=== PATIENT | female | born 1985 | race Caucasian/White ===

== ENCOUNTER 2017-05-04 13:14 | Day surgery (SDC) | payer OTHER ==
[2017-04-28 23:00] VITALS: BMI 26.6
[~2017-05-04 13:14] MED LIST: DEXAMETHASONE SOD PHOSPHATE 10 MG/ML 1 ML VIAL IV ONE; HEPARIN SODIUM,PORCINE 5,000 UNIT/ML 1 ML VIAL SQ ONE; LACTATED RINGERS 1,000 ML IV SCH; LIDOCAINE 1% 20 ML VIAL (10MG/ML) FOR IV START INTRADERMA PRN; ONDANSETRON 4 MG/2 ML VIAL IVP ONE; SCOPOLAMINE 1.5MG/72HR PATCH TRANSDERM ONE; ceFAZolin IN SWFI 2 GM/20 ML SYRINGE IVP ONE
[2017-05-04] MEDS ORDERED: MIDAZOLAM 2 MG/2 ML VIAL ONE (14:55)
[2017-05-04] MEDS ORDERED: LIDOCAINE 1% INJ 10MG/ML (20 ML MDV) ONE (14:55)
[2017-05-04] MEDS ORDERED: fentaNYL (PF) 50 MCG/ML 2 ML AMP ONE (14:55)
[2017-05-04] MEDS ORDERED: PROPOFOL 10 MG/ML 20 ML VIAL IV ONE (14:55)
[2017-05-04] MEDS ORDERED: HEPARIN SODIUM,PORCINE 5,000 UNIT/ML 1 ML VIAL SQ ONE (15:00)
--- NOTE | 2017-05-04 15:32 | P.OP ---
Date of Procedure: 05/04/17 Preoperative Diagnosis: Right breast increased nodularity upper outer quadrant Right breast FNA negative for cancer but nodularity persistent in patient with marked anxiety regarding nodularity Postoperative Diagnosis: Same Procedure(s) Performed: Right breast biopsy for persistent nodularity on physical exam Anesthesia: STEVENA Surgeon: Alice Boyd Estimated Blood Loss (ml): 5 IV fluids (ml): 400 Pathology: other (Breast tissue) Condition: stable Disposition: PACU Indications for Procedure: Persistent increased nodularity right breast upper outer quadrant area, FNA benign the patient extremely anxious Operative Findings: Dense breast tissue Description of Procedure: Patient was taken to the operating room and following induction of anesthesia the right breast was prepped and draped in a sterile fashion. Increased nodularity in the right breast and then identified and confirmed with the patient preoperatively. This area has been persistent and is increased nodularity despite a negative FNA patient is extremely anxious regarding this area. The patient has a positive family history of breast cancer. Therefore agreed to do an excisional biopsy of the nodularity. The breast was prepped and draped in a sterile fashion. An incision was made over the area of increased nodularity and excisional biopsy was performed. The tissue was very dense but no discrete nodule was identified. After assured that hemostasis was attained the deep tissues were closed using a 3-0 Vicryl suture. The skin was closed using 4-0 Monocryl. Steri-Strips were applied. The patient tolerated the procedure in stable condition. All instrument and sponge counts were correct at the end of the case.
--- NOTE | 2017-05-04 15:34 | P.DS ---
Providers Attending physician: Alice Boyd Primary care physician: Mendoza Chino Plan - Discharge Summary New Discharge Prescriptions: No Action Amitriptyline HCl [Elavil] 20 mg PO HS HYDROcodone/APAP 7.5-325MG [[place]ure 7.5-325] 1 tab PO BID PRN PRN Reason: Pain ALPRAZolam [Xanax] 0.5 mg PO TID PRN PRN Reason: Anxiety Meloxicam, Submicronized [Vivlodex] 10 mg PO HS Albuterol Inhaler [Ventolin Hfa Inhaler] 1 - 2 puff INHALATION Q6HR PRN PRN Reason: Shortness Of Breath Discharge Medication List ALPRAZolam [Xanax] 0.5 mg PO TID PRN 04/27/17 [History] Albuterol Inhaler [Ventolin Hfa Inhaler] 1 - 2 puff INHALATION Q6HR PRN [History] Amitriptyline HCl [Elavil] 20 mg PO HS 04/27/17 [History] HYDROcodone/APAP 7.5-325MG [[place]clure 7.5-325] 1 tab PO BID PRN 04/27/17 [History] Meloxicam, Submicronized [Vivlodex] 10 mg PO HS 04/27/17 [History] Follow up Appointment(s)/Referral(s): Alice Boyd MD [STAFF PHYSICIAN] - 1 Week Activity/Diet/Wound Care/Special Instructions: Do not drive today Do not drive if taking pain medication wear bra at all times Patient may shower after 24 hours Discharge Disposition: HOME SELF-CARE
[2017-05-04] MEDS: HYDROmorphone 0.5 MG/0.5 ML SYRINGE IVP PRN ×4 (15:49→16:04)
[2017-05-04 15:51] VITALS: TEMP 96.8
[2017-05-04] MEDS: MEPERIDINE 50 MG/ML SYRINGE IVP ONE ×2 (16:09→16:14)
[2017-05-04] MEDS: MIDAZOLAM 2 MG/2 ML VIAL IV PRN ×2 (16:20→16:24)
[2017-05-04] MEDS: fentaNYL (PF) 50 MCG/ML 2 ML AMP IVP ONE ×2 (16:28→16:35)
[2017-05-04] MEDS ORDERED: Acetaminophen-Codeine 300-30mg TAB PO ONE (17:00)
[2017-05-04 17:28] VITALS: BP 104/76; PULSE 80; RESP 16
== END 2017-05-04 17:40 | disposition home or self-care (01) ==
LOC: OR 13:14
PROVIDERS: ATTEND Surgery
DX: N60.31 Fibrosclerosis of right breast (principal); N60.81 Other benign mammary dysplasias of right breast; N60.21 Fibroadenosis of right breast; N60.91 Unspecified benign mammary dysplasia of right breast; R92.1 Mammographic calcification found on diagnostic imaging of breast; F41.9 Anxiety disorder, unspecified; M79.7 Fibromyalgia; J45.909 Unspecified asthma, uncomplicated; N20.0 Calculus of kidney; I82.409 Acute embolism and thrombosis of unspecified deep veins of unspecified lower extremity; J18.9 Pneumonia, unspecified organism; Z79.2 Long term (current) use of antibiotics; Z79.1 Long term (current) use of non-steroidal anti-inflammatories (NSAID); Z79.52 Long term (current) use of systemic steroids; Z79.899 Other long term (current) drug therapy; Z79.891 Long term (current) use of opiate analgesic; Z88.5 Allergy status to narcotic agent; Z91.018 Allergy to other foods; F17.200 Nicotine dependence, unspecified, uncomplicated; Z98.51 Tubal ligation status
CPT/HCPCS: 19120; 81025; 88305; J2250; J1644; J1100; J2175; J2405; J2001; J3010; J2704; J1170

== ENCOUNTER → 2019-01-23 | Outpatient (CLI) | payer BC | END | disposition home or self-care (01) | LOC: RADECHMAIN 12:14 | PROVIDERS: ATTEND Family Medicine | DX: R00.0 Tachycardia, unspecified (principal) | CPT/HCPCS: 93225; 93226 ==

== ENCOUNTER → 2019-03-10 | Outpatient (CLI) | payer BC ==
--- NOTE | 2019-03-10 14:58 | MR ---
PRE AND POSTCONTRAST ENHANCED MRI OF THE BRAIN: CLINICAL HISTORY: R42 dizziness CONTRAST: 9ml gadavist Multiplanar and multispin-echo imaging of the brain was performed both before and after the administr ation of contrast. The ventricles, basal cisterns and sulci overlying the cerebral convexities are within normal limits. There is no evidence for midline shift or mass effect. Acute intracranial hemorrhage or extra-axial collection is not evident. There are no abnormal areas of increased or decreased signal intensity within the brain parenchyma. Following contrast administration, there is no evidence for pathologic enhancement or enhancing mass. The mastoid air cells are well-aerated. Mild chronic sinusitis of the ethmoidal and maxillary sinuses . IMPRESSION: Unremarkable pre and postcontrast enhanced MRI of the brain.
== END | disposition home or self-care (01) ==
LOC: RADMRIMAIN 13:51
PROVIDERS: ATTEND Psychiatry & Neurology Neurology
DX: R42 Dizziness and giddiness (principal); Z88.5 Allergy status to narcotic agent; Z88.6 Allergy status to analgesic agent
CPT/HCPCS: 70553; A9585